=== PATIENT | male | born 1965 | race Caucasian/White ===

== ENCOUNTER 2019-04-14 00:55 | Day surgery (SDC) | payer MEDICAID, SELFPAY ==
[2019-04-12 15:14] VITALS: BMI 26.3
[2019-04-14] VITALS (8 sets, daily range): BP systolic 132–162; BP diastolic 78–101; PULSE 87–98; RESP 12–20; TEMP 36.4–37.1; O2SAT 95–100
--- NOTE | ~2019-04-14 | XR_ITS ---
EXAMINATION: XR surgery orthopedic DATE: 04/14/2019 13:47 INDICATION: Left hand second proximal phalanx fracture. TECHNIQUE: 3 intraoperative spot fluoroscopic views of left hand were obtained. I was not present. Fl uoroscopy exposure time was 72 seconds. COMPARISON: Left hand radiographs 04/12/2019 FINDINGS: There is a comminuted extra articular fracture of second proximal phalanx in near-anatomic alignment with fixation with 2 wires. 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 IMPRESSION: 1. Comminuted fractures of second proximal phalanx status post pinning. Reviewed, dictated and finalized at location A. L MOLDER
--- NOTE | 2019-04-14 07:25 | WPDHPUPDATE1 ---
History and Physical Update Update Date/Time: 04/14/19 07:25 History and Physical has been reviewed, including an updated exam of the patient. There are NO changes in the patient's condition. Risks, benefits, and alternatives have been discussed and questions answered. Patient agrees to proceed with procedure.
--- NOTE | 2019-04-14 11:41 | WPDANESEPPF ---
Anes - Initial Pre Proc Eval Procedure: Operation Date: 04/14/19 12:30 Proposed Procedures p Closed Reduction Proximal Phalanx Left Hand Index Finger, Possible Open Reduction - Hemanth Mace MD Date/Time: 04/14/19 11:41 Surgeon: Hemanth Mace MD Pre Op Diagnosis: Left Index Finger Proximal Phalanx Fx Patient Data Age: 54 Gender: M Height: 1.83 m Weight: 88 kg Allergies Allergy/AdvReac Type Severity Reaction Status Date / Time Penicillins Allergy Unknown Unknown Verified 04/12/19 15:29 Home Medications Medication Instructions Recorded Confirmed Type acetaminophen 650 mg PO Q6H PRN 04/12/19 04/12/19 History allopurinol 300 mg PO DAILY 04/12/19 04/12/19 History aspirin 81 mg PO DAILY 04/12/19 04/12/19 History bisacodyl 10 mg [place] DAILY PRN 04/12/19 04/12/19 History cyanocobalamin (vitamin B-12) 1,000 mcg PO DAILY 04/12/19 04/12/19 History [Vitamin B-12] ergocalciferol (vitamin D2) 50,000 unit PO WEEKLY 04/12/19 04/12/19 History [Vitamin D2] hydrocodone 5 mg-acetaminophen 325 1 tablet PO TID 04/12/19 04/12/19 History mg tablet ibuprofen 600 mg PO TID PRN 04/12/19 04/12/19 History omeprazole 40 mg PO DAILY 04/12/19 04/12/19 History Patient hx anesthesia problems: none Family hx anesthesia problems: none PMFSH Past Medical History Medical History (Updated 04/14/19 @ 11:41 by Raul Woodard MD) Anxiety Arthritis Dizziness Overweight Vision loss Surgical History Surgical History (Updated 04/12/19 @ 17:30 by Hemanth Mace MD) Encounter for orthopedic follow-up care Finger fracture, left Social History Social History Tobacco type: e-cigarettes Smokeless tobacco user: other Alcohol intake: current Substance use: unknown Gender identity (if verbalized by the patient): Male Spiritual care concerns: No Anes - Eval Final PreProcedure Day of Procedure 04/14/19 11:41 Patient weight: overweight Heart: regular rate and rhythm Lungs: clear to auscultation and normal air movement Airway: Mallampati scale class II Neurological: alert and oriented Last oral intake: >/= 8 hours ASA classification: III Emergent: no Anesthetic plan: proceed Anesthesia type and monitoring: general GIVS Informed Consent: The patient's anesthetic plan and its attendant risks and benefits were discussed with the patient/family/POA. Questions were solicited and answers provided to the satisfaction of the patient/family/POA.
[2019-04-14] MEDS: LACTATED RINGERS 1,000 ML 30 ML IV CONT ×2 (11:55→14:16)
[2019-04-14] MEDS: IBUPROFEN IV 800 MG/200 ML 800 MG/200 ML BAG 400 MG IVPB (12:04)
[2019-04-14] MEDS: CLINDAMYCIN 900 MG/NS 50 ML 900 MG/50 ML PIGGYBACK 50 MG IVPB (12:44)
--- NOTE | 2019-04-14 14:12 | PM.PROC ---
Procedure Note - Detailed Date of procedure: 04/14/19 Pre-op diagnosis: Left Index Finger Proximal Phalanx Fx Post-op diagnosis: same Procedure performed: Closed reduction percutaneous pin fixation left index finger proximal phalanx fracture Description of procedure: Indications: 54-year-old gentleman fell on his left hand and fractured index finger proximal phalanx. Radiographs show angulation, displacement and shortening. Patient with previous injury to the index finger proximal interphalangeal joint with fusion procedure done. Now secondary to fracture displacement there is deformity of the finger and unacceptable alignment. Presents for operative treatment. Patient identified in the preoperative holding. Informed consent given. Operative extremity marked. Patient received intravenous antibiotics. Patient brought to the operating room where underwent general anesthetic by anesthesia team. Positioned supine on operating room table. Time-out performed confirming the patient, site of the surgery and the plan. Left hand prepped draped usual sterile surgical fashion using a ChloraPrep skin solution. Closed reduction performed of the index finger proximal phalanx fracture. Image intensification confirmed alignment. Percutaneous pin fixation achieved with 0.062 in K-wire. First 1 placed from the radial side of the distal proximal phalanx and inserted proximally across the fracture into the ulnar side of the proximal fragment. Second pin placed from the radial side of the proximal fragment and advanced distally across the fracture and into the distal fragment. Image intensification confirm reduction of the fracture and placement of the fixation. Clinically rotation was verified with flexion of the finger and fingernail alignment. Pins were bent outside the skin and cut. Sterile dressing applied followed by splint. Patient awoke from anesthesia, extubated and taken to the recovery room in stable condition. Instrument count performed in the operating Room accurate at the end of the procedure. Implants: 0.062 in K-wire x2 Anesthesia: GLMA Surgeon: Hemanth Mace MD Stationary Equipment Mechanic: 1st photo studio assistant Estimated blood loss (mL): 3 Drains: No Packing: No Pathology: none sent Complications: None Condition: stable Disposition: PACU
[2019-04-14] MEDS: HYDROMORPHONE HCL 1 MG/ML INJ 0.25 MG IV PUSH ×4 (14:14→14:38)
[2019-04-14] MEDS: hydrALAZINE HCL 20 MG/ML VIAL 10 MG IV PUSH (14:38)
== END 2019-04-14 15:50 | disposition home or self-care (01) ==
PROVIDERS: Visit Provider Orthopaedic Surgery
PROC: (CPT 26727; principal; 2019-04-14 12:30)
DX: S62.611A Displaced fracture of proximal phalanx of left index finger, initial encounter for closed fracture (principal); W19.XXXA Unspecified fall, initial encounter; M19.90 Unspecified osteoarthritis, unspecified site; F41.9 Anxiety disorder, unspecified; Z79.82 Long term (current) use of aspirin; F17.290 Nicotine dependence, other tobacco product, uncomplicated
CPT/HCPCS: 26727; 76000; A9270; C1713; J0360; J1170; J1741; J2250; J3010; J7120

== ENCOUNTER 2020-07-24 15:52 | Emergency (ER) | payer OTHER, SELFPAY ==
--- NOTE | ~2020-07-24 | CT_ITS ---
EXAMINATION: CT cervical [facility] EXAM DATE: 07/24/2020 16:51 INDICATION: Neck and back pain, could not lay on back. TECHNIQUE: Spiral CT of the cervical spine was performed without contrast. Axial images were reviewe d. Coronal and sagittal reformatted images cervical spine were also reviewed. The dose-length produc t (DLP) for this examination was 353.29 mGy-cm. The exposure was tailored according to patient size (auto mA exposure control), and iterative reconstruction (ASIR) was used as additional dose reduction technique. There is no prior study for comparison. FINDINGS: There are large anteriorly based osteophytes at mid cervical levels. There is moderate to severe loss of the C6-7 disc height, mild to moderate disc disease at the 3 levels above. The vertebr al bodies are aligned in the AP dimension. The odontoid process is intact. The lateral masses of C1 line up with C2. There are no acute fractures identified. Level by level evaluation: C2-C3: Disc does not extend beyond the endplate margin. Uncovertebral joint arthropathy: None. Facet joint arthropathy: Mild. Neural foraminal stenosis: No stenosis. Central canal stenosis: No stenosis. C3-C4: Disc does not extend beyond the endplate margin. Uncovertebral joint arthropathy: None. Facet joint arthropathy: Mild. Neural foraminal stenosis: No stenosis. Central canal stenosis: No stenosis. C4-C5: There is a minimal diffuse disc bulge. Uncovertebral joint arthropathy: None. Facet joint arthropathy: Mild. Neural foraminal stenosis: No stenosis. Central canal stenosis: No stenosis. C5-C6: There is a mild diffuse disc bulge. Uncovertebral joint arthropathy: Mild to moderate left, mild right. Facet joint arthropathy: Severe right, mild to moderate left. Neural foraminal stenosis: Moderate right, mild left. Central canal stenosis: Mild. C6-C7: There is a mild to moderate diffuse disc bulge. Uncovertebral joint arthropathy: Severe bilateral. Facet joint arthropathy: Mild to moderate bilateral. Neural foraminal stenosis: Severe left, moderate to severe right. Central canal stenosis: Mild to moderate. C7-T1: There is a minimal diffuse disc bulge. Uncovertebral joint arthropathy: Mild bilateral. Facet joint arthropathy: None. No acute findings. Neural foraminal stenosis: No stenosis. Central canal stenosis: No stenosis. IMPRESSION: 1. Moderate to severe spondylosis at C6-7 with significant bilateral neural foraminal stenosis. 2. Large cervical endplate osteophytes. Reviewed, dictated and finalized at location A. IMPRESSION: 1. Moderate to severe spondylosis at C6-7 with significant bilateral neural fo raminal stenosis. 2. Large cervical endplate osteophytes.
[2020-07-24 16:17] VITALS: BP 147/100; PULSE 100; RESP 14; TEMP 36.7; O2SAT 100
[2020-07-24] MEDS: diazePAM (*CRX) 5 MG TABLET PO (16:53)
[2020-07-24] MEDS: HYDROcodone/acetaminophen (*CRX) 7.5-325 MG TABLET 1 TAB PO (16:53)
[2020-07-24] MEDS: KETOROLAC (*BKC) 60 MG/2 ML VIAL IM (16:54)
--- NOTE | 2020-07-24 18:10 | ED.BACK ---
HPI - Back Pain/Injury General Chief Complaint: Back Pain/Injury Stated Complaint: neck pain Time Seen by Provider: 07/24/20 16:25 Source: patient and RN notes reviewed Mode of arrival: ambulatory Limitations: no limitations History of Present Illness HPI Narrative: Patient is a 55-year-old male who presents to emergency department for evaluation of neck pain that began on Thursday noting aching pain to the left side of the neck patient notes spasming and tenderness into the trapezius musculature patient denies injury or trauma has tried [id number] medications with minimal improvement patient notes that the pain now patient notes pain on the right patient appears uncomfortable upon arrival denies radicular symptoms or paresthesias or similar occurrence in the past patient has not seen primary care for this Related Data Home Medications Medication Instructions Recorded Confirmed acetaminophen 650 mg PO Q6H PRN 04/12/19 04/12/19 allopurinol 300 mg PO DAILY 04/12/19 04/14/19 aspirin 81 mg PO DAILY 04/12/19 04/12/19 bisacodyl 10 mg [place] DAILY PRN 04/12/19 04/12/19 cyanocobalamin (vitamin B-12) 1,000 mcg PO DAILY 04/12/19 04/12/19 [Vitamin B-12] ergocalciferol (vitamin D2) 50,000 unit PO WEEKLY 04/12/19 04/12/19 [Vitamin D2] hydrocodone 5 mg-acetaminophen 325 1 tablet PO TID 04/12/19 04/14/19 mg tablet ibuprofen 600 mg PO TID PRN 04/12/19 04/12/19 omeprazole 40 mg PO DAILY 04/12/19 04/12/19 Allergies Allergy/AdvReac Type Severity Reaction Status Date / Time Penicillins Allergy Unknown Unknown Verified 04/12/19 15:29 Review of Systems Review of Systems: All systems reviewed & are unremarkable except as noted in HPI and below PMFSH Past Medical History Medical History (Updated 07/24/20 @ 18:16 by Jostin Mackey PA-C) Anxiety Arthritis Dizziness Overweight Vision loss Surgical History Surgical History Encounter for orthopedic follow-up care Finger fracture, left Family History Family History Other Heart disease Social History Social History Tobacco type: e-cigarettes/vaping Smokeless tobacco user: other Alcohol intake: current Substance use: unknown Gender identity (if verbalized by the patient): Male Spiritual care concerns: No Exam Narrative: Exam Narrative: GENERAL: Well-appearing, well-nourished, uncomfortable and in no acute distress. HEAD: Normocephalic, atraumatic. EYES: PERRLA and EOMI. ENT: Nares clear, no rhinorrhea or epistaxis. Mucous membranes moist. Oropharynx without tonsillar hypertrophy exudate or other lesions. NECK: Supple. No adenopathy or masses. CHEST: Clear to auscultation. No respiratory distress. No wheezes rales or rhonchi HEART: Regular rate and rhythm. No murmur heard. Normal peripheral pulses. ABDOMEN: Soft, nontender, nondistended EXTREMITIES: Normal range of motion. No edema. Spasming and tenderness of the cervical musculature no rash or other deformities noted tenderness is posterior neck only SKIN: Warm, dry, no rash. NEURO: No focal deficits. Alert and oriented x3. Cranial nerves II through XII grossly intact. Motor and sensory intact and symmetrical in the extremities PSYCH: Normal mood and affect. Course Course Emergency Course: Patient evaluated in the emergency department was treated with medications will be discharged home with medication and primary care referral felt appropriate for outpatient reevaluation had improvement with medications is afebrile nontoxic-appearing no distress Vital Signs Vital signs: Vital Signs Temperature 98.1 F 07/24/20 16:17 Pulse Rate 100 07/24/20 16:17 Respiratory Rate 14 07/24/20 16:17 Blood Pressure 147/100 H 07/24/20 16:17 Pulse Oximetry 100 07/24/20 16:17 Temperature 98.1 F 07/24/20 16:17 Pulse Rate 100
== END 2020-07-24 18:27 | disposition home or self-care (01) ==
PROVIDERS: Emergency Provider Emergency Medicine
DX: M54.2 Cervicalgia (principal); M47.812 Spondylosis without myelopathy or radiculopathy, cervical region; F41.9 Anxiety disorder, unspecified; M19.90 Unspecified osteoarthritis, unspecified site
CPT/HCPCS: 72125; 96372; 99284; A9270; J1885

== ENCOUNTER 2020-08-20 17:38 | Inpatient (IN) | payer OTHER, SELFPAY ==
--- NOTE | ~2020-08-20 | XR_ITS ---
XR chest 2V DATE: 08/20/2020 18:31 INDICATION: Shortness of breath, anterior right chest pain. Dizziness. Right hand numbness. Smoker. TECHNIQUE: AP and lateral views COMPARISON: 12/02/2018 AP chest FINDINGS: Normal heart size. No pulmonary infiltrate or consolidation, pleural effusion or pulmonary vascular congestion or pneumothorax. Chronic mild blunting right costophrenic angle. Old left healed rib fractures. Osteopenia. Surgical clips overlie the right upper quadrant of the abdomen. IMPRESSION: No active cardiopulmonary disease Reviewed, dictated and finalized at location A.
--- NOTE | ~2020-08-20 | XR_ITS ---
XR finger 2nd RT min 2V 08/22/2020 09:39 INDICATION: Right second finger pain PROCEDURE: 4 views right second finger COMPARISON: No prior studies for comparison. FINDINGS: Fracture, dislocation or subluxation is not identified. The soft tissues appear within norm al limits. No foreign bodies are identified. IMPRESSION: 1: NO ACUTE BONE OR JOINT ABNORMALITY IDENTIFIED. Reviewed, dictated and finalized at location A.
--- NOTE | ~2020-08-20 | US_ITS ---
US renal BI 08/21/2020 07:59 Procedure: Realtime transabdominal ultrasound of the kidneys and bladder. Indication: Acute renal insufficiency Comparison: No prior studies for comparison. Findings: Renal echotexture is normal bilaterally without hydronephrosis, contour deforming mass or r enal calculus. The right kidney measures 12.3 cm and left kidney measures 10.4 cm. Bladder within no rmal limits. There is fatty infiltration of the liver. Impression: 1: Unremarkable renal ultrasound. No stones, masses or hydronephrosis. Reviewed, dictated and finalized at location A. Impression: 1: Unremarkable renal ultrasound. No stones, masses or hydronephrosis.
[2020-08-20 17:51] VITALS: BP 102/82; PULSE 111; RESP 17; O2SAT 97
--- NOTE | 2020-08-20 18:00 | ED.GENADULT ---
HPI - General Adult General Chief complaint: Chest Pain Stated complaint: CP,DIZZINESS,TINGLING Time Seen by Provider: 08/20/20 17:52 Source: patient History of Present Illness HPI narrative: Patient is a 55 y/o male complaining of sharp chest pain starting about 10 hours ago while he was at work. He describes his pain as sharp and rates it as 9/10. There is no alleviating or exacerbating factor. There is no pain radiation. He also has SOB and tingling, cramping all over. 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 Related Data Home Medications Medication Instructions Recorded Confirmed acetaminophen 650 mg PO Q6H PRN 04/12/19 04/12/19 allopurinol 300 mg PO DAILY 04/12/19 04/14/19 aspirin 81 mg PO DAILY 04/12/19 04/12/19 bisacodyl 10 mg AL DAILY PRN 04/12/19 04/12/19 cyanocobalamin (vitamin B-12) 1,000 mcg PO DAILY 04/12/19 04/12/19 [Vitamin B-12] ergocalciferol (vitamin D2) 50,000 unit PO WEEKLY 04/12/19 04/12/19 [Vitamin D2] hydrocodone 5 mg-acetaminophen 325 1 tablet PO TID 04/12/19 04/14/19 mg tablet ibuprofen 600 mg PO TID PRN 04/12/19 04/12/19 omeprazole 40 mg PO DAILY 04/12/19 04/12/19 Allergies Allergy/AdvReac Type Severity Reaction Status Date / Time Penicillins Allergy Unknown Unknown Verified 08/20/20 17:56 Review of Systems Constitutional: Constitutional: Denies chills, Denies fever(s), Denies headache(s) and Denies weakness Eyes: Eyes: Denies blurry vision ENT: Denies headache(s) and Denies neck pain Cardiovascular: Cardiovascular: Reports chest pain and Reports dyspnea Respiratory: Respiratory: Denies cough and Reports dyspnea Gastrointestinal: Gastrointestinal: Denies abdominal pain, Denies diarrhea, Denies nausea and Denies vomiting Genitourinary: Genitourinary: Denies hematuria and Denies dysuria Musculoskeletal: Musculoskeletal: Denies back pain and Denies neck pain Neurologic: Denies headache(s), Reports tingling, Reports paresthesias and Denies weakness [facility] Past Medical History Medical History (Updated 08/20/20 @ 19:48 by Pascale Trimble MD) Anxiety Arthritis Dizziness Overweight Vision loss Surgical History Surgical History Encounter for orthopedic follow-up care Finger fracture, left Family History Family History Other Heart disease Social History Social History Tobacco type: e-cigarettes/vaping Smokeless tobacco user: other Alcohol intake: current Substance use: unknown Gender identity (if verbalized by the patient): Male Spiritual care concerns: No Exam Const: General: no acute distress and well developed Orientation/consciousness: oriented to person, oriented to place, oriented to time and patient oriented x3 HENMT: Head: normocephalic Ears: external ears normal General nose exam: Normal external nose present Eyes: General: appearance normal, both eyes and all related structures Conjunctivae: conjunctivae normal Neck: Neck: normal visual inspection and full ROM Chest: Chest palpation & inspection: normal inspection of the chest and no tenderness Resp: Effort & Inspection: normal respiratory effort Auscultation: clear to auscultation bilaterally Cardio: Rate: tachycardic Rhythm: regular rhythm GI: GI Palp: No abdominal tenderness and Yes Soft to palpation Skin: General skin exam: normal color and turgor normal Neuro: General: oriented to person, oriented to place, oriented to time and patient oriented x3 Cognition (Neuro): normal cognition Extrem: General: normal to inspection, full ROM and no pedal edema Psych: Appearance: grossly normal Mental Status: mental status grossly normal Affect: normal affect Course Consultations Consultation #1: Discussed with Dr. Callahan, who agrees to admit. Date: 08/20/20 Time: 19:43 Vital Signs Vital signs: Vital Signs P
--- NOTE | 2020-08-20 18:03 | ECG_ITS ---
Measurements Intervals [place] Rate: 112 P: 26 IL: 156 QRS: -42 QRSD: 101 T: 42 QT: 325 QTc: 444 Interpretive Statements SINUS TACHYCARDIA LEFT AXIS DEVIATION POOR R WAVE PROGRESSION, ANTERIOR LEADS BASELINE ARTIFACT- II, III, AVR, AVF, V1-V6 ABNORMAL ECG Electronically Signed On 08-20-2020 21:47:45 CDT by Eric Moffett D.O.
[2020-08-20] MEDS: SODIUM CHLORIDE 0.9% IV 1,000 ML 999 ML IV CONT ×2 (18:10→19:47)
[2020-08-20 18:20] LABS: Basophils Absolute Auto 0.1 K/mm3 (0.0-0.1); Basophils Percent Auto 0.4 % (0.2-1.2); Eosinophils Absolute Auto 0.1 K/mm3 (0-0.3); Eosinophils Percent Auto 0.7 % (0-4.4); Hematocrit 48.4 % (42.0-52.0); Hemoglobin 16.8 g/dL (14.0-18.0); Immature Granulocyte Absolute 0.16 K/mm3 (0.00-0.031); Lymphocytes Percent Auto 11.2 % (18.3-44.2); Mean Corpuscular HGB Conc 34.7 g/dl (32-36); Mean Corpuscular Hemoglobin 36.5 pg (26-34); Mean Corpuscular Volume 105.2 fl (80-100); Mean Platelet Volume 9.8 fl (7.4-10.4); Monocytes Absolute Auto 1.3 K/mm3 (0.1-0.6); Neutrophils Absolute Auto 12.7 K/mm3 (1.3-6.7); Neutrophils Percent Auto 78.7 % (45.5-73.1); Nucleated Red Blood Cells Perc 0.1 % (0.0-0.2); Platelet Count Result 332 k/mm3 (150-375); Red Cell Distribution Width 12.9 % (11.5-14.5); White Blood Count 16.1 K/mm3 (4.5-10.0)
[2020-08-20 18:32] LABS: Alanine Aminotransferase 64 U/L (4-50); Albumin Level 4.9 g/dL (3.5-5.1); Alkaline Phosphatase 157 U/L (38-126); Anion Gap 19 mmol/L (8-16); Aspartate Amino Transferase 109 U/L (17-59); Bilirubin,Total 1.6 mg/dL (0.2-1.3); Blood Urea Nitrogen 16 mg/dL (9-20); Calcium 10.7 mg/dL (8.4-10.2); Carbon Dioxide 21 mmol/L (22-30); Chloride 97 mmol/L (98-107); Creatine Kinase 324 U/L (55-170); Estimated CRCL calculation 26 ml/min; Estimated Glomerular Filt Rate 20; Glucose 105 mg/dL (75-110); Potassium 3.9 mmol/L (3.4-5.0); Sodium 137 mmol/L (137-145)
[2020-08-20 18:35] LABS: D Dimer 0.58 ug/mL (<0.48)
[2020-08-20 18:43] LABS: Troponin I 0.012 ng/mL (0.000-0.034)
[2020-08-20 18:45] VITALS: PULSE 105; RESP 27
[2020-08-20 18:46] VITALS: BP 102/73; PULSE 107; RESP 29; O2SAT 99
[2020-08-20 20:31] VITALS: BP 95/54; PULSE 108; RESP 18; TEMP 36.5; O2SAT 94; BMI 29.0
--- NOTE | 2020-08-20 21:04 | PM.IMHP ---
H&P: HPI History of Present Illness Date/Time: 08/20/20 21:04 Chief Complaint: Muscle cramps Narrative: This is a 55-year-old male with past medical history significant for 40 pack - year tobacco dependence, alcohol dependence, gout, gout arthritis. Patient states that he has cut back on cigarette consumption as well as alcohol his down to up 10 cigarettes a day from a pack daily and up to a 5th of liquor on the weekends from a handle. 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 He states that over the weekend he was helping a friend to move the stuffs around in his garage and the heat was intense and he was feeling short of breath and fatigued when lifting and shoveling had to stop several times. He states that he drinks several bottles of Gatorade daily and he keeps up with his fluids. He has had changes in the sputum quality his usual sputum is white and has turned greenish and has had some copious sputum production. He denies any fevers chills rigors no PND no orthopnea no leg swelling however he had chest pain localized to the ribcage of the right-sided and numbness and tingling of the right upper extremity which has resolved now. He denies any nausea vomiting or diarrhea no abdominal pain had decreased urine output and dark color urine. Preliminary workup was significant for creatinine of 3.1 patient last creatinine was back in 2019 and was normal he has some elevation of LFT's. CBC showed a hemoglobin of 16 and last previous available hemoglobin is of 10. A chest x-ray was clear. Review of Systems Review of Systems: Narrative: Muscle cramps, fatigue. Constitutional: Constitutional: Reports body ache(s), Reports fatigue, Denies fever(s), Denies malaise and Denies weakness Eyes: Eyes: Denies change in vision ENT: Denies nasal congestion, Denies nasal discharge and Denies nasal obstruction Cardiovascular: Cardiovascular: Denies chest pain at rest, Denies chest pain with activity, Denies irregular heart rhythm, Denies leg edema, Denies radiating jaw, neck or arm pain, Denies palpitations and Denies dyspnea on exertion Respiratory: Respiratory: Reports cough, Reports excessive phlegm production, Reports dyspnea, Reports dyspnea on exertion and Denies wheezing Gastrointestinal: Gastrointestinal: Denies abdominal pain, Denies nausea and Denies vomiting Genitourinary: Genitourinary: Denies dysuria Musculoskeletal: Musculoskeletal: Reports muscle cramps Integumentary/Breasts: Skin/Breast: Denies rash Neurologic: Denies focal weakness, Denies numbness, Denies Sensory deficit (Neuro) and Reports tingling (Right upper extremity) Psychiatric: Psychiatric: Reports no additional psychiatric complaints Endocrine: Endocrine: Denies polydipsia and Denies palpitations Hematologic/Lymphatic: Hematologic/Lymphatic: Reports no additional hematologic/lymphatic complaints Allergic/Immunologic: Allergic/Immunologic: Reports no additional allergic/immunologic complaints PMF Past Medical History Medical History (Updated 08/20/20 @ 21:58 by Nicky Callahan MD) Anxiety Arthritis Dizziness Overweight Vision loss Surgical History Surgical History Encounter for orthopedic follow-up care Finger fracture, left Family History Family History Other Heart disease Social History Social History Smoking packs per day: 10 Smoking cigarettes per day: 200.0 Smoking status: Current every day smoker Tobacco type: cigarettes Smokeless tobacco user: other Alcohol intake: current Drinks per week: 40 Substance use: former Gender identity (if verbalized by the patient): Male Spiritual care concerns: No Meds Home Medications and
--- NOTE | 2020-08-20 21:27 | ADMGEN ---
This patient, Erwin Mcgregor III, was admitted to [facility] Room 327-01. Patient/family oriented to hospital policies and general routines including ID bracelet, bed and alarms, visiting hours, pain management, procedures, bathroom and other care routines, personal items, smoking policy, room service/diet, and visiting hours. Information on how to activate the Rapid Response Team has been discussed. Patient/Family are encouraged to report perceived risks to care and to ask questions if they do not understand what they are told or what they should do.
[2020-08-20 21:58] LABS: Troponin I < 0.012 ng/mL (0.000-0.034)
[2020-08-20 22:00] VITALS: BP 98/72; PULSE 109; RESP 22; TEMP 36.4; O2SAT 98
[2020-08-20] MEDS: SODIUM CHLORIDE 0.9% IV 1,000 ML 125 ML IV CONT (23:14)
[2020-08-20 23:33] VITALS: O2SAT 98
[2020-08-21] VITALS (18 sets, daily range): BP systolic 103–124; BP diastolic 50–86; PULSE 82–105; RESP 18–20; TEMP 36.3–36.6; O2SAT 97–100
--- NOTE | 2020-08-21 | ECHO_ITS ---
Patient Info Name: Erwin Mcgregor Age: 55 years : 1965 Gender: Male Ht: 72 in Wt: 220 lbs BSA: 2.27 m2 HR: 83 bpm BP: 105 / 47 mmHg Heart Rhythm: Sinus Rhythm Technical Quality: Good Exam Date: 08/21/2020 10:29 AM Exam Location: [facility] Patient Status: Outpatient Admit Date: 08/20/2020 Staff Ordering Physician: Nicky Callahan MD Assembling Motor Builder: Jacob Garcia, SAMUEL, RT Attending Provider: Nicky Callahan MD Referring Physician: [place] GOFF; Exam Type: CA echo doppler color flow Study Info Indications R07.9 - Chest pain, unspecified Complete two-dimensional, color flow and Doppler transthoracic echocardiogram is performed. Summary 1. Complete two-dimensional, color flow and Doppler transthoracic echocardiogram is performed. 2. Left ventricular chamber size and systolic are normal with no regional wall motion abnormalities with an estimated ejection fraction of 65-70%. Borderline LVH. Grade 1 diastolic dysfunction. 3. The aortic root size at the sinus of Valsalva is borderline dilated, 4.0 cm.. 4. No significant valve disease. 5. Pulmonary pressure could not be estimated on this study. 6. Somewhat technically difficult study: patient could not cooperate fully. 7. Normal sinus rhythm. Left Ventricle Left ventricular chamber dimension is normal. Left ventricular systolic function is normal, estimated at Empty. There is mildly increased left ventricular wall thickness. Left ventricular septal wall motion is normal. The left ventricular diastolic function is grade I diastolic dysfunction. Left ventricular chamber size and systolic are normal with no regional wall motion abnormalities with an estimated ejection fraction of 65-70%. Borderline LVH. Grade 1 diastolic dysfunction. Right Ventricle Right ventricular chamber dimension is normal. Right ventricular systolic function is normal. Left Atria Left atrial chamber dimension is normal. Right Atria Right atrial chamber dimension is normal. Aortic Valve The aortic valve is trileaflet. There is no aortic valve sclerosis. There is no aortic valve stenosis. There is no aortic valve regurgitation. Pulmonic Valve The pulmonic valve is normal. There is no pulmonic valve stenosis. There is no pulmonic regurgitation. Mitral Valve The mitral valve has normal leaflets. There is no mitral valve stenosis. There is no mitral valve regurgitation. Tricuspid Valve The tricuspid valve leaflets are normal. There is no significant tricuspid valve stenosis. There is trace tricuspid valve regurgitation. No pulmonary hypertension, estimated pulmonary arterial systolic pressure is Empty. Pericardium/Pleural The pericardium appears normal. There is no pericardial effusion. Inferior Vena Cava Not well visualized inferior vena cava with >50% collapse upon inspiration consistent with Empty right atrial pressure, Empty. Aorta The aortic root size at the sinus of Valsalva is borderline dilated, 4.0 cm.. The prox ascending aorta size is normal. Left Ventricular Outflow Tract Name Value Normal LVOT 2D LVOT Diameter 2.1 cm LVOT Doppler
[2020-08-21 01:07] LABS: Troponin I < 0.012 ng/mL (0.000-0.034)
[2020-08-21] MEDS: ALBUTEROL SULFATE NEB 2.5 MG/0.5 ML INH 5 MG INHALATION ×4 (02:16→19:47)
[2020-08-21] MEDS: ENOXAPARIN 40 MG/0.4 ML SYRINGE SUB-Q (09:04)
[2020-08-21] MEDS: SODIUM CHLORIDE 0.9% IV 1,000 ML 125 ML IV CONT ×2 (09:53→18:26)
[2020-08-21 10:00] LABS: Creatinine Urine 145.9 mg/dL
[2020-08-21 10:06] LABS: Sodium Urine Random 72 meq/L
--- NOTE | 2020-08-21 12:55 | P.PNIM_ITS ---
Progress Note: A&P Assessment and Plan (1) Dehydration: Code(s): E86.0 - Dehydration Status: Acute Assessment and Plan: * Place in observation * IV fluids * Push oral fluids * Intake and output daily * Supportive care (2) BHASKAR (acute kidney injury): Code(s): N17.9 - Acute kidney failure, unspecified Status: Acute Assessment and Plan: * Will obtain fractional excretion of sodium * Sodium urine random is 72 and creatinine urine random 145.9 * Presumably to be pre renal azotemia * Patient is noted to be taking NSAID though * Patient declined Knowles catheter placement * Urine output is marginal * Strict I&Os (3) Chest pain: Qualifiers: Chest pain type: unspecified Qualified Code(s): R07.9 - Chest pain, unspecified Code(s): R07.9 - Chest pain, unspecified Status: Acute Assessment and Plan: * Located in the right ribcage * At time of my visit had resolved * Troponins <0.012 times three * Supportive care * Continue to monitor * Echocardiogram in a.m. (4) Chronic bronchitis with COPD (chronic obstructive pulmonary disease): Onset Date: ~08/20/20 Code(s): J44.9 - Chronic obstructive pulmonary disease, unspecified Status: Acute Assessment and Plan: * Patient with changes in sputum quality * Is started on levofloxacin * Albuterol inhaler every 6 hours (5) Tobacco dependence: Code(s): F17.200 - Nicotine dependence, unspecified, uncomplicated Status: Acute Assessment and Plan: * Nicotine patch as needed * smoking cessation (6) Alcohol dependence: Code(s): F10.20 - Alcohol dependence, uncomplicated Status: Acute Assessment and Plan: * CIWA * Watch for withdrawal symptoms (7) Gout: Code(s): M10.9 - Gout, unspecified Status: Acute Assessment and Plan: * Stable Subjective Date/time seen: 08/21/20 12:55 This is a 55-year-old male with past medical history significant for 40 pack - year tobacco dependence, alcohol dependence, gout, gout arthritis who presented to the ED with complaints of muscle cramps, chest pain, and spasm while at work. 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 He does drink lots of water and Gatorade while working, however, he did state that it has just been way too hot. He also stated that he has had diarrhea for the last three days and that he has noticed that he has not been urinating very much lately. He also stated that he is a heavy smoker and drinker, however has been cutting back. He also stated that he did fall and has been dizzy which has been increasing over the last couple of days. He has also been shaky and weak, with chills and fevers. He did say that he has been sweating more than normal and that he has been short of breath lately. He did deny chest pain, shortness of breath, nausea, vomiting, diarrhea, constipation, urinary dysfunction, chills, fevers, headaches, loss of conscientiousness, lightheadedness or dizziness. Review of Systems Review of Systems: All systems reviewed & are unremarkable except as noted in HPI and below Exam Const: General: comfortable, no acute distress, well developed, alert, awake and other (Well-appearing) Nutritional Appearance: average body habitus Orientation/consciousness: patient oriented x3 HENMT:
--- NOTE | 2020-08-21 12:55 | PM.IMPN ---
Progress Note: A&P Assessment and Plan (1) Dehydration: Code(s): E86.0 - Dehydration Status: Acute Assessment and Plan: Place in observation IV fluids Push oral fluids Intake and output daily Supportive care (2) BHASKAR (acute kidney injury): Code(s): N17.9 - Acute kidney failure, unspecified Status: Acute Assessment and Plan: Will obtain fractional excretion of sodium Sodium urine random is 72 and creatinine urine random 145.9 Presumably to be pre renal azotemia Patient is noted to be taking NSAID though Patient declined Knowles catheter placement Urine output is marginal Strict I&Os (3) Chest pain: Qualifiers: Chest pain type: unspecified Qualified Code(s): R07.9 - Chest pain, unspecified Code(s): R07.9 - Chest pain, unspecified Status: Acute Assessment and Plan: Located in the right ribcage At time of my visit had resolved Troponins <0.012 times three Supportive care Continue to monitor Echocardiogram in a.m. (4) Chronic bronchitis with COPD (chronic obstructive pulmonary disease): Onset Date: ~08/20/20 Code(s): J44.9 - Chronic obstructive pulmonary disease, unspecified Status: Acute Assessment and Plan: Patient with changes in sputum quality Is started on levofloxacin Albuterol inhaler every 6 hours (5) Tobacco dependence: Code(s): F17.200 - Nicotine dependence, unspecified, uncomplicated Status: Acute Assessment and Plan: Nicotine patch as needed smoking cessation (6) Alcohol dependence: Code(s): F10.20 - Alcohol dependence, uncomplicated Status: Acute Assessment and Plan: CIWA Watch for withdrawal symptoms (7) Gout: Code(s): M10.9 - Gout, unspecified Status: Acute Assessment and Plan: Stable Subjective Date/time seen: 08/21/20 12:55 This is a 55-year-old male with past medical history significant for 40 pack - year tobacco dependence, alcohol dependence, gout, gout arthritis who presented to the ED with complaints of muscle cramps, chest pain, and spasm while at work. 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 He does drink lots of water and Gatorade while working, however, he did state that it has just been way too hot. He also stated that he has had diarrhea for the last three days and that he has noticed that he has not been urinating very much lately. He also stated that he is a heavy smoker and drinker, however has been cutting back. He also stated that he did fall and has been dizzy which has been increasing over the last couple of days. He has also been shaky and weak, with chills and fevers. He did say that he has been sweating more than normal and that he has been short of breath lately. He did deny chest pain, shortness of breath, nausea, vomiting, diarrhea, constipation, urinary dysfunction, chills, fevers, headaches, loss of conscientiousness, lightheadedness or dizziness. Review of Systems Review of Systems: All systems reviewed & are unremarkable except as noted in HPI and below Exam Const: General: comfortable, no acute distress, well developed, alert, awake and other (Well-appearing) Nutritional Appearance: average body habitus Orientation/consciousness: patient oriented x3 HENMT: Head: normal to inspection, normocephalic and atraumatic Ears: hearing grossly normal bilaterally General nose exam: Normal external nose present Face and sinus: normal facial exam Mouth: Yes Normal oral and palatal mucosa present Eyes: General: appearance normal, both eyes and all related structures Sclera: sclerae normal Pupils: Equal, round and reactive pupils present EOM: EOMs intact bilaterally Neck: Neck: full ROM, no lymphadenopathy and no JVD Thyroid: thyroid normal Lymphatic: no lymphadenopathy noted Resp: Effort & Inspection: normal respi
--- NOTE | 2020-08-21 13:07 | PCNSR ---
On 08/21/20, the student,Madeline Cook, provided care and completed [facility] documentation on this patient. I have reviewed the student's documentation and agree with the findings.
[2020-08-22] VITALS (16 sets, daily range): BP systolic 106–126; BP diastolic 62–71; PULSE 69–96; RESP 12–18; TEMP 36.4–36.6; O2SAT 95–98
[2020-08-22] MEDS: ACETAMINOPHEN 325 MG TABLET 650 MG PO ×3 (01:25→20:16)
--- NOTE | 2020-08-22 01:31 | PC.NURSE ---
Patient woke up very agitated over the fact that his wrist and finger have been hurting all day and no one did anything to help him... patient made no complaints prior to this. Spoke to Dr. Diaz after reviewing Mr. Fraser visit and she ordered a CIWA scale per Vini's report as well as some PRN tylenol. I also offered the patient an extra pillow to prop up his arm and an ice pack. -AEW RN
[2020-08-22] MEDS: ALBUTEROL SULFATE NEB 2.5 MG/0.5 ML INH 5 MG INHALATION ×4 (02:20→20:39)
[2020-08-22 06:04] LABS: Basophils Percent Auto 0.3 % (0.2-1.2); Eosinophils Absolute Auto 0.1 K/mm3 (0-0.3); Eosinophils Percent Auto 1.8 % (0-4.4); Hematocrit 39.3 % (42.0-52.0); Hemoglobin 13.2 g/dL (14.0-18.0); Immature Granulocyte Absolute 0.04 K/mm3 (0.00-0.031); Immature Granulocyte Percent A 0.5 % (0-0.5); Lymphocytes Absolute Auto 0.91 K/mm3 (0.9-3.2); Lymphocytes Percent Auto 12.3 % (18.3-44.2); Mean Corpuscular HGB Conc 33.6 g/dl (32-36); Mean Corpuscular Hemoglobin 36.4 pg (26-34); Mean Corpuscular Volume 108.3 fl (80-100); Mean Platelet Volume 9.7 fl (7.4-10.4); Monocytes Absolute Auto 0.5 K/mm3 (0.1-0.6); Monocytes Percent Auto 6.8 % (2.6-8.5); Neutrophils Absolute Auto 5.8 K/mm3 (1.3-6.7); Neutrophils Percent Auto 78.3 % (45.5-73.1); Platelet Count Result 172 k/mm3 (150-375); Red Blood Count 3.63 M/mm3 (4.6-6.20); Red Cell Distribution Width 12.8 % (11.5-14.5); White Blood Count 7.4 K/mm3 (4.5-10.0)
[2020-08-22 06:24] LABS: Alanine Aminotransferase 38 U/L (4-50); Albumin Level 3.4 g/dL (3.5-5.1); Alkaline Phosphatase 112 U/L (38-126); Anion Gap 9 mmol/L (8-16); Aspartate Amino Transferase 75 U/L (17-59); Bilirubin,Total 0.5 mg/dL (0.2-1.3); Blood Urea Nitrogen 18 mg/dL (9-20); Calcium 7.9 mg/dL (8.4-10.2); Carbon Dioxide 20 mmol/L (22-30); Chloride 109 mmol/L (98-107); Estimated CRCL calculation 52 ml/min; Estimated Glomerular Filt Rate 45; Glucose 109 mg/dL (75-110); Magnesium 1.6 mg/dL (1.6-2.3); Potassium 3.7 mmol/L (3.4-5.0); Sodium 138 mmol/L (137-145)
[2020-08-22] MEDS: SODIUM CHLORIDE 0.9% IV 1,000 ML 125 ML IV CONT ×2 (16:31→16:32)
--- NOTE | 2020-08-22 16:50 | P.PNIM_ITS ---
Progress Note: A&P Assessment and Plan (1) Dehydration: Code(s): E86.0 - Dehydration Status: Acute Assessment and Plan: * Place in observation * IV fluids * Push oral fluids * Intake and output daily * Supportive care * Creatinine has decreased to 1.6 from 3.3 (2) BHASKAR (acute kidney injury): Code(s): N17.9 - Acute kidney failure, unspecified Status: Acute Assessment and Plan: * Will obtain fractional excretion of sodium * Sodium urine random is 72 and creatinine urine random 145.9 * Presumably to be pre renal azotemia * Patient is noted to be taking NSAID though * Patient declined Knowles catheter placement * Urine output is marginal * Strict I&Os (3) Chest pain: Qualifiers: Chest pain type: unspecified Qualified Code(s): R07.9 - Chest pain, unspecified Code(s): R07.9 - Chest pain, unspecified Status: Acute Assessment and Plan: * Located in the right ribcage * At time of my visit had resolved * Troponins <0.012 times three * Supportive care * Continue to monitor * Echocardiogram 65-70% grade 1 dysfunction (4) Chronic bronchitis with COPD (chronic obstructive pulmonary disease): Onset Date: ~08/20/20 Code(s): J44.9 - Chronic obstructive pulmonary disease, unspecified Status: Acute Assessment and Plan: * Patient with changes in sputum quality * Is started on levofloxacin * Albuterol inhaler every 6 hours (5) Tobacco dependence: Code(s): F17.200 - Nicotine dependence, unspecified, uncomplicated Status: Acute Assessment and Plan: * Nicotine patch as needed * smoking cessation (6) Alcohol dependence: Code(s): F10.20 - Alcohol dependence, uncomplicated Status: Acute Assessment and Plan: * CIWA * Watch for withdrawal symptoms * Librium 25mg Q12hr PRN for CIWA >10 (7) Gout: Code(s): M10.9 - Gout, unspecified Status: Acute Assessment and Plan: * Stable (8) Finger pain, right: Code(s): M79.644 - Pain in right finger(s) Status: Acute Assessment and Plan: * Red and swollen * No acute abnormalities shown on the xray * Splinted * Pain medications PRN Subjective Date/time seen: 08/22/20 13:24 This is a 55-year-old male with past medical history significant for 40 pack - year tobacco dependence, alcohol dependence, gout, gout arthritis who presented to the ED with complaints of muscle cramps, chest pain, and spasm while at work. Today he looks a lot better. Kidney function is trending down and is at 1.60 today. Patient stated that he was just starting to urinate more. He also stated that he was able to eat and has not had any diarrhea today. He did say that his index finger on the right hand hurts. Which it is red and inflamed. xray does not show any fracture or abnormality. Patient is unaware if he had fallen or hurt it an any way. Did put the finger in a split to try to take the pressure off. He did deny chest pain, shortness of breath, nausea, vomiting, diarrhea, constipation, urinary dysfunction, chills, fevers, headaches, loss of conscientiousness, lightheadedness or dizziness. He did say that he wanted to walk around and get out of bed. I told him that would be a good idea. Review of Systems Review of Systems: All systems reviewed & ar
--- NOTE | 2020-08-22 16:50 | PM.IMPN ---
Progress Note: A&P Assessment and Plan (1) Dehydration: Code(s): E86.0 - Dehydration Status: Acute Assessment and Plan: Place in observation IV fluids Push oral fluids Intake and output daily Supportive care Creatinine has decreased to 1.6 from 3.3 (2) BHASKAR (acute kidney injury): Code(s): N17.9 - Acute kidney failure, unspecified Status: Acute Assessment and Plan: Will obtain fractional excretion of sodium Sodium urine random is 72 and creatinine urine random 145.9 Presumably to be pre renal azotemia Patient is noted to be taking NSAID though Patient declined Knowles catheter placement Urine output is marginal Strict I&Os (3) Chest pain: Qualifiers: Chest pain type: unspecified Qualified Code(s): R07.9 - Chest pain, unspecified Code(s): R07.9 - Chest pain, unspecified Status: Acute Assessment and Plan: Located in the right ribcage At time of my visit had resolved Troponins <0.012 times three Supportive care Continue to monitor Echocardiogram 65-70% grade 1 dysfunction (4) Chronic bronchitis with COPD (chronic obstructive pulmonary disease): Onset Date: ~08/20/20 Code(s): J44.9 - Chronic obstructive pulmonary disease, unspecified Status: Acute Assessment and Plan: Patient with changes in sputum quality Is started on levofloxacin Albuterol inhaler every 6 hours (5) Tobacco dependence: Code(s): F17.200 - Nicotine dependence, unspecified, uncomplicated Status: Acute Assessment and Plan: Nicotine patch as needed smoking cessation (6) Alcohol dependence: Code(s): F10.20 - Alcohol dependence, uncomplicated Status: Acute Assessment and Plan: CIWA Watch for withdrawal symptoms Librium 25mg Q12hr PRN for CIWA >10 (7) Gout: Code(s): M10.9 - Gout, unspecified Status: Acute Assessment and Plan: Stable (8) Finger pain, right: Code(s): M79.644 - Pain in right finger(s) Status: Acute Assessment and Plan: Red and swollen No acute abnormalities shown on the xray Splinted Pain medications PRN Subjective Date/time seen: 08/22/20 13:24 This is a 55-year-old male with past medical history significant for 40 pack - year tobacco dependence, alcohol dependence, gout, gout arthritis who presented to the ED with complaints of muscle cramps, chest pain, and spasm while at work. Today he looks a lot better. Kidney function is trending down and is at 1.60 today. Patient stated that he was just starting to urinate more. He also stated that he was able to eat and has not had any diarrhea today. He did say that his index finger on the right hand hurts. Which it is red and inflamed. xray does not show any fracture or abnormality. Patient is unaware if he had fallen or hurt it an any way. Did put the finger in a split to try to take the pressure off. He did deny chest pain, shortness of breath, nausea, vomiting, diarrhea, constipation, urinary dysfunction, chills, fevers, headaches, loss of conscientiousness, lightheadedness or dizziness. He did say that he wanted to walk around and get out of bed. I told him that would be a good idea. Review of Systems Review of Systems: All systems reviewed & are unremarkable except as noted in HPI and below Exam Const: General: comfortable, no acute distress, well developed, alert, awake and other (Well-appearing) Nutritional Appearance: average body habitus Orientation/consciousness: patient oriented x3 HENMT: Head: normal to inspection, normocephalic and atraumatic Ears: hearing grossly normal bilaterally General nose exam: Normal external nose present Face and sinus: normal facial exam Mouth: Yes Normal oral and palatal mucosa present Eyes: General: appearance normal, both eyes and all related structures Sc
[2020-08-22] MEDS: chlordiazePOXIDE (*CRX) 25 MG CAPSULE PO (17:53)
[2020-08-22] MEDS: NICOTINE (*PBKC) 14 MG PATCH 1 PATCH TRANSDERM (23:06)
[2020-08-23] VITALS (7 sets, daily range): BP systolic 110–135; BP diastolic 54–73; PULSE 80–86; RESP 16–20; TEMP 36.3–36.9; O2SAT 97–100
[2020-08-23] MEDS: SODIUM CHLORIDE 0.9% IV 1,000 ML 125 ML IV CONT (00:18)
[2020-08-23 06:07] LABS: Hematocrit 39.7 % (42.0-52.0); Hemoglobin 13.2 g/dL (14.0-18.0); Mean Corpuscular HGB Conc 33.2 g/dl (32-36); Mean Corpuscular Hemoglobin 36.2 pg (26-34); Mean Corpuscular Volume 108.8 fl (80-100); Mean Platelet Volume 9.4 fl (7.4-10.4); Platelet Count Result 156 k/mm3 (150-375); Red Blood Count 3.65 M/mm3 (4.6-6.20); White Blood Count 7.4 K/mm3 (4.5-10.0)
[2020-08-23 06:24] LABS: Alanine Aminotransferase 38 U/L (4-50); Albumin Level 3.5 g/dL (3.5-5.1); Alkaline Phosphatase 104 U/L (38-126); Anion Gap 8 mmol/L (8-16); Aspartate Amino Transferase 68 U/L (17-59); Bilirubin,Total 0.4 mg/dL (0.2-1.3); Blood Urea Nitrogen 14 mg/dL (9-20); Calcium 8.1 mg/dL (8.4-10.2); Carbon Dioxide 21 mmol/L (22-30); Chloride 108 mmol/L (98-107); Estimated CRCL calculation 64 ml/min; Estimated Glomerular Filt Rate 58; Glucose 104 mg/dL (75-110); Potassium 4.2 mmol/L (3.4-5.0); Sodium 137 mmol/L (137-145)
[2020-08-23] MEDS: ALBUTEROL SULFATE NEB 2.5 MG/0.5 ML INH 5 MG INHALATION (08:48)
[2020-08-23] MEDS: ACETAMINOPHEN 325 MG TABLET 650 MG PO (09:03)
[2020-08-23] MEDS: chlordiazePOXIDE (*CRX) 25 MG CAPSULE PO (09:04)
[2020-08-23 10:37] LABS: Uric Acid 6.1 mg/dL (3.5-8.5)
[2020-08-23] MEDS: predniSONE 20 MG TABLET 40 MG PO (13:07)
[2020-08-23] MEDS: KETOROLAC 30 MG/ML VIAL (*BKC) IV PUSH (13:07)
--- NOTE | 2020-08-23 13:45 | PCRCNOTE ---
PT. REFUSED NEBULIZER TX; R.N. NOTIFIED JESSICA ABBOTT OF THE REFUSAL.
--- NOTE | 2020-08-23 17:45 | P.DS_ITS ---
DS: Admitting Diagnosis Admitting Diagnosis Admitting Diagnosis: Dehydration DS: Discharge Diagnosis Discharge Diagnosis (1) Dehydration: Code(s): E86.0 - Dehydration Status: Acute Assessment and Plan: * Place in observation * IV fluids * Push oral fluids * Intake and output daily * Supportive care * Creatinine has decreased to 1.3 from 3.3 (2) BHASAKR (acute kidney injury): Code(s): N17.9 - Acute kidney failure, unspecified Status: Acute Assessment and Plan: * Will obtain fractional excretion of sodium * Sodium urine random is 72 and creatinine urine random 145.9 * Presumably to be pre renal azotemia * Patient is noted to be taking NSAID though * Patient declined Knowles catheter placement * Urine output is marginal * Strict I&Os (3) Chest pain: Qualifiers: Chest pain type: unspecified Qualified Code(s): R07.9 - Chest pain, unspecified Code(s): R07.9 - Chest pain, unspecified Status: Acute Assessment and Plan: * Located in the right ribcage * At time of my visit had resolved * Troponins <0.012 times three * Supportive care * Continue to monitor * Echocardiogram 65-70% grade 1 dysfunction (4) Chronic bronchitis with COPD (chronic obstructive pulmonary disease): Onset Date: ~08/20/20 Code(s): J44.9 - Chronic obstructive pulmonary disease, unspecified Status: Acute Assessment and Plan: * Patient with changes in sputum quality * Is started on levofloxacin * Albuterol inhaler every 6 hours (5) Tobacco dependence: Code(s): F17.200 - Nicotine dependence, unspecified, uncomplicated Status: Acute Assessment and Plan: * Nicotine patch as needed * smoking cessation (6) Alcohol dependence: Code(s): F10.20 - Alcohol dependence, uncomplicated Status: Acute Assessment and Plan: * CIWA * Watch for withdrawal symptoms * Librium 25mg Q12hr PRN for CIWA >10 (7) Gout: Code(s): M10.9 - Gout, unspecified Status: Acute Assessment and Plan: * Stable * Uric acid 6.6 (8) Finger pain, right: Code(s): M79.644 - Pain in right finger(s) Status: Acute Assessment and Plan: * Red and swollen * No acute abnormalities shown on the xray * Splinted * Pain medications PRN DS: Summary Hospital Course Hospital Course: This is a 55-year-old male with past medical history significant for 40 pack - year tobacco dependence, alcohol dependence, gout, gout arthritis who presented to the ED with complaints of muscle cramps, chest pain, and spasm while at work. He has been rehydrated and creatinine has decreased to 1.3 from 3.6. Patient is urinating more and no edema is noted. Patient does feel better today. He is sitting on the side of the bed. He is ready to go home. Patient's white blood cell count and h/h is stable. He did deny chest pain, shortness of breath, nausea, vomiting, diarrhea, constipation, urinary dysfunction, chills, fevers, headaches, loss of conscientiousness, lightheadedness or dizziness. Time spent discussing smoking cessation with patient: more than 10 minutes Status at Discharge Functional status at discharge: independent ambulation Overall status at discharge: patient is back to baseline Time Spent with Patient Time attestation: * Total time spent providing a
--- NOTE | 2020-08-23 17:45 | PM.DS ---
DS: Admitting Diagnosis Admitting Diagnosis Admitting Diagnosis: Dehydration DS: Discharge Diagnosis Discharge Diagnosis (1) Dehydration: Code(s): E86.0 - Dehydration Status: Acute Assessment and Plan: Place in observation IV fluids Push oral fluids Intake and output daily Supportive care Creatinine has decreased to 1.3 from 3.3 (2) BHASKAR (acute kidney injury): Code(s): N17.9 - Acute kidney failure, unspecified Status: Acute Assessment and Plan: Will obtain fractional excretion of sodium Sodium urine random is 72 and creatinine urine random 145.9 Presumably to be pre renal azotemia Patient is noted to be taking NSAID though Patient declined Knowles catheter placement Urine output is marginal Strict I&Os (3) Chest pain: Qualifiers: Chest pain type: unspecified Qualified Code(s): R07.9 - Chest pain, unspecified Code(s): R07.9 - Chest pain, unspecified Status: Acute Assessment and Plan: Located in the right ribcage At time of my visit had resolved Troponins <0.012 times three Supportive care Continue to monitor Echocardiogram 65-70% grade 1 dysfunction (4) Chronic bronchitis with COPD (chronic obstructive pulmonary disease): Onset Date: ~08/20/20 Code(s): J44.9 - Chronic obstructive pulmonary disease, unspecified Status: Acute Assessment and Plan: Patient with changes in sputum quality Is started on levofloxacin Albuterol inhaler every 6 hours (5) Tobacco dependence: Code(s): F17.200 - Nicotine dependence, unspecified, uncomplicated Status: Acute Assessment and Plan: Nicotine patch as needed smoking cessation (6) Alcohol dependence: Code(s): F10.20 - Alcohol dependence, uncomplicated Status: Acute Assessment and Plan: CIWA Watch for withdrawal symptoms Librium 25mg Q12hr PRN for CIWA >10 (7) Gout: Code(s): M10.9 - Gout, unspecified Status: Acute Assessment and Plan: Stable Uric acid 6.6 (8) Finger pain, right: Code(s): M79.644 - Pain in right finger(s) Status: Acute Assessment and Plan: Red and swollen No acute abnormalities shown on the xray Splinted Pain medications PRN DS: Summary Hospital Course Hospital Course: This is a 55-year-old male with past medical history significant for 40 pack - year tobacco dependence, alcohol dependence, gout, gout arthritis who presented to the ED with complaints of muscle cramps, chest pain, and spasm while at work. He has been rehydrated and creatinine has decreased to 1.3 from 3.6. Patient is urinating more and no edema is noted. Patient does feel better today. He is sitting on the side of the bed. He is ready to go home. Patient's white blood cell count and h/h is stable. He did deny chest pain, shortness of breath, nausea, vomiting, diarrhea, constipation, urinary dysfunction, chills, fevers, headaches, loss of conscientiousness, lightheadedness or dizziness. Time spent discussing smoking cessation with patient: more than 10 minutes Status at Discharge Functional status at discharge: independent ambulation Overall status at discharge: patient is back to baseline Time Spent with Patient Time attestation: Total time spent providing and/or coordinating discharge services: Documentation, education, result review, order management, cardiac review, electrolyte management, bedside exam Time spent: Greater than 30 minutes Exam Const: General: comfortable, no acute distress, well developed, alert, awake and other (Well-appearing) Nutritional Appearance: average body habitus Orientation/consciousness: patient oriented x3 HENMT: Head: normal to inspection, normocephalic and atraumatic Ears: hearing grossly normal bilaterally General nose exam: Normal external nose present Face and sinus: normal
== END 2020-08-23 18:35 | disposition home or self-care (01) | DRG 422 ==
LOC: ANHED 19:48 → ANH3MEDSUR 20:27
PROVIDERS: Admitting Provider Internal Medicine; Emergency Provider Emergency Medicine; Visit Provider Nurse Practitioner
DX: E86.0 Dehydration (principal); N17.9 Acute kidney failure, unspecified; R07.9 Chest pain, unspecified; J44.9 Chronic obstructive pulmonary disease, unspecified; F17.210 Nicotine dependence, cigarettes, uncomplicated; M10.9 Gout, unspecified; F10.20 Alcohol dependence, uncomplicated; M79.644 Pain in right finger(s)
CPT/HCPCS: 36415; 71046; 73140; 76775; 80053; 82550; 82570; 83735; 84300; 84484; 84550; 85025; 85027; 85380; 93005; 93306; 94640; 96361; 96365; 96372; 99285; A9270; G0378; G0379; J1650; J1885; J1956; J7030; J7512

== ENCOUNTER 2020-11-28 19:00 | Emergency (ER) | payer MEDICAID, SELFPAY ==
[2020-11-28 19:05] VITALS: BP 151/83; PULSE 109; RESP 18; TEMP 36.2; O2SAT 100
[2020-11-28 19:27] LABS: Uric Acid 9.6 mg/dL (3.5-8.5)
[2020-11-28 22:37] VITALS: BP 123/82; PULSE 88; RESP 15; O2SAT 97
[2020-11-28] MEDS: COLCHICINE 0.6 MG TABLET PO (22:58)
[2020-11-28] MEDS: predniSONE 20 MG TABLET 60 MG PO (22:58)
--- NOTE | 2020-11-28 23:09 | ED.GENADULT ---
HPI - General Adult General Chief complaint: Extremity Problem,Nontraumatic Stated complaint: gout/rash to butt Time Seen by Provider: 11/28/20 22:30 Source: patient Mode of arrival: ambulatory Limitations: no limitations History of Present Illness HPI narrative: Patient is 55 years old white male presents with severe pain, redness and swelling of the metatarsophalangeal joint of the right first toe, also left ankle and left ring finger. History of gout, currently is not on any medication. Patient usually gets better on prednisone and colchicine. Patient also complaining of severe itching rash right buttock started 2 days ago. The joints pain started 2 weeks ago. Patient denies any fever, chills, nausea, vomiting. Patient is not vaccinated for COVID-19. Related Data Allergies Allergy/AdvReac Type Severity Reaction Status Date / Time Penicillins Allergy Unknown Unknown Verified 11/28/20 22:39 Review of Systems Review of Systems: CONSTITUTIONAL: Denies fever, chills, or sweats. EYES: Denies visual changes, redness, or discharge. ENT: Denies rhinorrhea, congestion, sore throat, or otalgia. CARDIOVASCULAR: Denies chest pain, palpitations, or edema. RESPIRATORY: Denies cough or dyspnea. GASTROINTESTINAL: Denies abdominal pain, nausea, vomiting, or diarrhea. GENITOURINARY: Denies dysuria or hematuria. SKIN: Denies rash or itching. MUSCULOSKELETAL: Denies back pain, joint pain, or myalgia. NEUROLOGIC: Denies headache, numbness, or weakness. PSYCHIATRIC: Denies anxiety or depression. [facility] Past Medical History Medical History Anxiety Arthritis Dizziness Overweight Vision loss Surgical History Surgical History Encounter for orthopedic follow-up care Finger fracture, left Family History Family History Other Heart disease Social History Social History Smoking packs per day: 10 Smoking cigarettes per day: 200.0 Smoking status: Current every day smoker Tobacco type: cigarettes Smokeless tobacco user: other Alcohol intake: current Drinks per week: 40 Alcohol use details: occasionally Substance use: former Gender identity (if verbalized by the patient): Male Spiritual care concerns: No Exam Narrative: General appearance: Well-developed, well-nourished Skin: Normal color Head: Normocephalic, nontraumatic Eyes: Clear conjunctiva ENT: Oropharynx normal, ears normal, nose normal Neck: Supple, nontender Chest and respiratory: Airway patent, no respiratory distress, no accessory muscle use Heart: Regular rate/rhythm Abdomen: Soft, nontender, no organomegaly, quiet bowel sounds Vascular: Normal peripheral pulses, normal capillary refill. Musculoskeletal: Right foot showed swelling, redness, severe tenderness of the right first metatarsophalangeal joint, left lateral malleolus redness and swelling, left ring finger showed swelling and diffuse tenderness of the proximal interphalangeal joint Neurologic: Alert and oriented ?3, [employer] is normal as tested, no gross motor deficit Course Course Emergency Course: Stable Vital Signs Vital signs: Vital Signs Temperature 36.2 C L 11/28/20 19:05 Pulse Rate 109 H 11/28/20 19:05 Respiratory Rate 18 11/28/20 19:05 Blood Pressure 151/83 H 11/28/20 19:05 Pulse Oximetry 100 11/28/20 19:05 Temperature 36.2 C L 11/28/20 19:05 Pulse Rate 88 11/28/20 22:37 Respiratory Rate 15 11/28/20 22:37 Blood Pressure 123/82 11/28/20 22:37 Pulse Oximetry 97 11/08
[2020-11-28] MEDS: COLCHICINE 0.6 MG TABLET (23:18)
== END 2020-11-28 23:22 | disposition home or self-care (01) ==
PROVIDERS: Emergency Provider Emergency Medicine
DX: M10.9 Gout, unspecified (principal); L30.9 Dermatitis, unspecified; M19.90 Unspecified osteoarthritis, unspecified site; E66.3 Overweight; Z68.25 Body mass index [BMI] 25.0-25.9, adult; F17.210 Nicotine dependence, cigarettes, uncomplicated
CPT/HCPCS: 36415; 84550; 99283; A9270; J7512

== ENCOUNTER 2021-10-07 18:33 | Emergency (ER) | payer BC, SELFPAY ==
[2021-10-07 18:37] VITALS: BP 128/86; PULSE 114; RESP 16; TEMP 36.7; O2SAT 99
== END 2021-10-07 20:00 | disposition left against medical advice (07) ==
LOC: ANHED 19:15
DX: R07.81 Pleurodynia (principal)
CPT/HCPCS: 99199

== ENCOUNTER 2021-12-05 17:34 | Emergency (ER) | payer BC, SELFPAY ==
--- NOTE | ~2021-12-05 | XR_ITS ---
EXAMINATION: XR shoulder RT min 2V DATE: 12/05/2021 17:59 INDICATION: Right shoulder pain and decreased range of motion TECHNIQUE: AP internally and externally rotated, AP oblique externally rotated and transscapular Y vi ews of the right shoulder were obtained. COMPARISON: None FINDINGS: Normal alignment. No fracture. Glenohumeral joint is normal. Minimal right acromioclavicular osteoar thritis. Soft tissues are unremarkable. Visualized portions of the lungs are clear. IMPRESSION: Minimal right acromioclavicular osteoarthritis. Reviewed, dictated and finalized at location A.
--- NOTE | ~2021-12-05 | CT_ITS ---
EXAMINATION: CT cervical spine wo con DATE: 12/05/2021 18:03 INDICATION: Severe neck pain TECHNIQUE: Computed tomography (CT) of the cervical spine was performed without intravenous contrast. Automated exposure control and iterative reconstruction technique were employed. The dose-length pro duct was 474.97 mGy-cm. COMPARISON: 07/24/2020 FINDINGS: Mild osteoarthritis at the atlantoaxial articulation. 1 mm anterolisthesis C5 on C6 and 1 mm retrolis thesis C6 on C7. Vertebral body heights are normal. No fracture. No significant change in moderate to severe disc height loss at C6-C7. Mild to moderate disc height loss at C5-C6 and mild disc height lo ss at C4-C5. Anterior osteophytes most prominent at C3-C4 and C4-C5 and to lesser degree at C5-C6 and C6-C7. Cervical soft tissues are unremarkable. Visualized apices of lungs are clear. The following d isc levels are specifically discussed: C2-C3: The disc does not extend beyond the endplate margin. There is no uncovertebral joint osteoarth ritis. There is mild bilateral facet joint osteoarthritis. There is no neural foraminal stenosis. The re is no central canal stenosis. C3-C4: The disc does not extend beyond the endplate margin. There is no uncovertebral joint osteoarth ritis. There is minimal bilateral facet joint osteoarthritis. There is no neural foraminal stenosis. There is no central canal stenosis. C4-C5: Disc is mildly bulging. There is minimal bilateral uncovertebral joint osteoarthritis. There i s minimal bilateral facet joint osteoarthritis. There is no neural foraminal stenosis. There is no ce ntral canal stenosis. C5-C6: Disc is bulging. There is mild bilateral uncovertebral joint osteoarthritis. There is mild lef t and severe right facet joint osteoarthritis. There is mild left and moderate right neural foraminal stenosis. There is mild central canal stenosis. C6-C7: Posterior disc osteophyte complex. There is severe bilateral uncovertebral joint osteoarthriti s. There is old right and mild to moderate left facet joint osteoarthritis. There is moderate to lobo re right and severe left neural foraminal stenosis. There is mild to moderate central canal stenosis. C7-T1: Disc is minimally bulging. There is no uncovertebral joint osteoarthritis. There is mild right and moderate to severe left facet joint osteoarthritis. There is no neural foraminal stenosis. There is no central canal stenosis. IMPRESSION: 1. No significant change in cervical spondylosis, moderate to severe at C6-C7 and otherwise mild. No acute osseous abnormality. Reviewed, dictated and finalized at location A. IMPRESSION: 1. No significant change in cervical spondylosis, moderate to severe at C6-C7 a nd otherwise mild. No acute osseous abnormality.
[2021-12-05 17:37] VITALS: BP 116/74; PULSE 106; RESP 16; TEMP 36.2; O2SAT 99
--- NOTE | 2021-12-05 17:49 | ED.NECK ---
HPI - Neck Pain/Injury General Chief Complaint: Neck Pain/Injury Stated Complaint: NECK PAIN Time Seen by Provider: 12/05/21 17:42 History of Present Illness HPI Narrative: Patient is a 56-year-old male here for evaluation of atraumatic neck pain over the past month and a half. Patient states that the pain came on gradually, and is worse with turning his head, is present in the right lateral aspect of his neck and will occasionally moves down into his right shoulder with certain movements. Patient states that turning his head no and lateral movement of his head exacerbate the pain in addition to abduction of his right shoulder. He has been attempting ibuprofen and Tylenol without significant relief. Denies known injury or recent increased exertion. Denies exertional component of pain, associated diaphoresis, nausea, vomiting, fevers, chills. No weakness in upper or lower extremities, weight loss, GARIBAY, visual symptoms. Related Data Allergies Allergy/AdvReac Type Severity Reaction Status Date / Time Penicillins Allergy Unknown Unknown Verified 12/05/21 18:09 Review of Systems Review of Systems: Gen: Denies fevers or chills Eyes: Denies eye pain or visual change ENT: Denies congestion Respiratory: Denies shortness of breath or cough CV: Denies chest pain or palpitations GI: Denies abdominal pain nausea, emesis or diarrhea denies burning, urgency, frequency or hematuria Musculoskeletal: Reports right-sided neck pain and shoulder pain. Neuro: Denies numbness, tingling, weakness or focal weakness Skin: Denies rash Except as documented, all other systems reviewed and negative [facility] Past Medical History Medical History (Updated 12/06/21 @ 00:00 by Allen Romero) Anxiety Arthritis Dizziness Overweight Vision loss Surgical History Surgical History Encounter for orthopedic follow-up care Finger fracture, left Family History Family History Other Heart disease Social History Social History Smoking packs per day: 10 Smoking cigarettes per day: 200.0 Smoking status: Current every day smoker Tobacco type: cigarettes Smokeless tobacco user: other Alcohol intake: current Drinks per week: 40 Alcohol use details: occasionally Substance use: former Gender identity (if verbalized by the patient): Male Spiritual care concerns: No Exam Narrative: APPEARANCE: Well appearing, no pain in distress, well-nourished. Head: Normocephalic and atraumatic. EYES: PERRLA/EOMI, conjunctivae clear NOSE: No nasal drainage EARS: External ear normal in appearance THROAT: Oropharynx is clear. Mucous membranes are moist. NECK: Supple. No adenopathy, no masses. RESPIRATORY: Airway patent, respirations nonlabored. Clear to auscultation bilaterally, no rales, rhonchi, wheezing. CARDIOVASCULAR: Regular rate and rhythm without murmurs, rubs, or gallops. ABDOMINAL: Normoactive bowel sounds. Soft, nontender, nondistended. No rebound tenderness or guarding. MUSCULOSKELETAL: Patient is able to flex his neck, reports pain with extension of neck but is able. Pain with lateral rotation of head to the right in addition to right lateral flexion. Spurling's test positive. Patient able to externally rotate arms. Pain with abduction of right shoulder at 90 degrees. 5/5 strength in bilateral upper and lower extremities. No midline tenderness to palpation of c spine. No bony tenderness to palpation of right shoulder. Tender to palpation along right trapezius muscle. NEURO: Normal speech. No focal neurologic deficits. SKIN: Skin is warm and dry. No rashes. PSYCHIATRIC: Normal affect/mood. Course Vital Signs Vital signs: Vital Signs Temperature 97.1 F L 12/05/21 17:37 Pulse Rate 106 H 12/05/21 17:37 Respiratory Rate 16 12/05/21 17:37 Blood Pressure 116/74
[2021-12-05] MEDS: LIDOCAINE 5% PATCH 1 PATCH TRANSDERM (18:07)
[2021-12-05] MEDS: CYCLOBENZAPRINE HCL 10 MG TABLET PO (18:07)
[2021-12-05 18:58] VITALS: BP 124/71; PULSE 89; RESP 16; O2SAT 100
== END 2021-12-05 19:09 | disposition home or self-care (01) ==
LOC: ANHED 19:04
PROVIDERS: Emergency Provider Emergency Medicine
DX: M19.011 Primary osteoarthritis, right shoulder (principal); M47.812 Spondylosis without myelopathy or radiculopathy, cervical region; E66.3 Overweight; Z68.27 Body mass index [BMI] 27.0-27.9, adult; F17.210 Nicotine dependence, cigarettes, uncomplicated
CPT/HCPCS: 72125; 73030; 99284; A9270

== ENCOUNTER 2022-05-26 18:07 | Emergency (ER) | payer BC, SELFPAY ==
[2022-05-26 18:13] VITALS: BP 165/101; PULSE 82; RESP 18; TEMP 36.5; O2SAT 100
--- NOTE | 2022-05-26 19:51 | ED.GENADULT ---
HPI - General Adult General Chief complaint: Neck Pain/Injury Stated complaint: neck pain Time Seen by Provider: 05/26/22 18:58 History of Present Illness HPI narrative: This is a 57-year-old male with a history of chronic neck and shoulder pain presenting with increased pain. Patient has been having pain for 6 months. It is a sharp shooting pain that starts in the para-thoracic muscles around T1 through T3 and shoots into the shoulder and down his hand. It is 10/10 intensity and constant. Patient has never had this pain before 6 months ago. It's worse with changing in position. Patient has tried Motrin Tylenol Robaxin lidocaine patches and gabapentin for relief. He said he had the best relief from gabapentin. The patient was being [facility] however he does not qualify for [facility] due to some issue with his service. He has been told to get a private physician and has been attempting to do that. He is unemployed. He is not on disability. He is accompanied by his girlfriend who speaks on his behalf. Related Data Allergies Allergy/AdvReac Type Severity Reaction Status Date / Time Penicillins Allergy Unknown Unknown Verified 05/26/22 18:38 [facility] Past Medical History Medical History (Updated 05/26/22 @ 20:03 by Shreyas Gillespie MD) Anxiety Arthritis Cervical spondylosis Dizziness Overweight Vision loss Surgical History Surgical History Encounter for orthopedic follow-up care Finger fracture, left Family History Family History Other Heart disease Social History Social History Smoking packs per day: 10 Smoking cigarettes per day: 200.0 Smoking status: Current every day smoker Tobacco type: cigarettes Smokeless tobacco user: other Alcohol intake: current Drinks per week: 40 Alcohol use details: occasionally Substance use: former Living arrangements: other Occupation/Education: unemployed Gender identity (if verbalized by the patient): Male Spiritual care concerns: No Exam Narrative: APPEARANCE: Patient is sitting upright with his head tilted to the left, he yells out intermittently and pain Head: atraumatic. EYES: EOMI, NOSE: Atraumatic NECK: Tenderness palpation over the right paracervical muscles. RESPIRATORY: No increased rate of breathing CARDIOVASCULAR: RRR, ABDOMINAL: Non-distended MUSCULOSKELETAl: tenderness to palpation over the right trapezius muscles around the upper thoracic region. palpation of the muscles in his trapezius cause shooting pains down his arms to his fingertips. The pain is not in a dermatomal distribution. NEURO: Alert. Focal exam of the right upper extremity reveals no loss of sensation, stress test technician strength, Radian ulnar median nerve distributions have full strength. Cap refills less than 2 seconds and radial ulnar pulses are +2. SKIN:: Warm, dry. Normal color PSYCHIATRIC: Normal affect Course Vital Signs Vital signs: Vital Signs Temperature 97.7 F 05/26/22 18:13 Pulse Rate 82 05/26/22 18:13 Respiratory Rate 18 05/26/22 18:13 Blood Pressure 165/101 H 05/26/22 18:13 Pulse Oximetry 100 05/26/22 18:13 Temperature 97.7 F 05/26/22 18:13 Pulse Rate 82 05/26/22 18:13 Respiratory Rate 18 05/26/22 18:13 Blood Pressure 165/101 H 05/26/22 18:13 Pulse Oximetry 100 05/26/22 18:13 Medical Decision Making MDM Narrative Medical decision making narrative: -Presentation: 57-year-old male presenting with chronic neck and shoulder pain. He is attempting to obtain a primary care physician. His appointment on the . The patient will be treated symptomatically and given medication to see him through to his apointment on 06/20. -DDX includes but is not limited to: Arthritis, regional pain syndrome, fibromyalgia, cervical radiculopathy -Co-morb
[2022-05-26] MEDS: HYDROcodone/acetaminophen (*CRX) 5-325 MG TABLET 2 TAB PO (20:15)
== END 2022-05-26 20:20 | disposition home or self-care (01) ==
PROVIDERS: Emergency Provider Emergency Medicine
DX: S16.1XXA Strain of muscle, fascia and tendon at neck level, initial encounter (principal); M25.511 Pain in right shoulder; M54.2 Cervicalgia; G89.29 Other chronic pain; M19.90 Unspecified osteoarthritis, unspecified site; M47.812 Spondylosis without myelopathy or radiculopathy, cervical region; E66.3 Overweight; Z68.28 Body mass index [BMI] 28.0-28.9, adult; F17.210 Nicotine dependence, cigarettes, uncomplicated; X58.XXXA Exposure to other specified factors, initial encounter
CPT/HCPCS: 99283; A9270

== ENCOUNTER 2023-07-23 17:47 | Emergency (ER) | payer BC, SELFPAY ==
--- NOTE | ~2023-07-23 | XR_ITS ---
EXAMINATION: XR foot LT min 3V DATE: 07/23/2023 18:33 INDICATION: Left foot pain and swelling. TECHNIQUE: 3 views of left foot were obtained. COMPARISON: None. FINDINGS: There is a fracture of medial aspect of head of first proximal phalanx with rotation and 2 mm dorsal medial displacement of the distal fracture fragment. Osteoarthritis of some of the interpha langeal joints. IMPRESSION: 1. Intra-articular fracture of medial aspect of head of first proximal phalanx. Reviewed, dictated and finalized at location E.
--- NOTE | ~2023-07-23 | XR_ITS ---
EXAMINATION: XR ankle LT min 3V DATE: 07/23/2023 18:18 INDICATION: Left ankle pain and swelling. Fall. TECHNIQUE: 3 views of left ankle were obtained. COMPARISON: None. FINDINGS: Bone alignment is normal. No fracture. There is mild osteoarthritis of talonavicular joint. There is ankle soft tissue swelling. IMPRESSION: 1. No fracture. Reviewed, dictated and finalized at location E. IMPRESSION: 1. No fracture.
--- NOTE | 2023-07-23 18:22 | ED.LOWEXIN ---
HPI - Extremity Injury (Lower) General Chief Complaint: Extremity Injury, Lower Stated Complaint: L ankle Time Seen by Provider: 07/23/23 17:52 Source: patient Mode of arrival: ambulatory Limitations: no limitations History of Present Illness HPI Narrative: Patient is a 58-year-old male who presents the ED with report of left ankle pain and swelling. Patient reports he tripped and rolled his left ankle walking down the stairs on Thursday. He has since developed pain and swelling throughout his left lateral ankle foot. Is able to ambulate, but has pain with this. States symptoms have continued to worsen which prompted his presentation today. Has been taking Tylenol and ibuprofen without much relief. Has not taken anything for pain today. Denies numbness, knee pain. Related Data Allergies Allergy/AdvReac Type Severity Reaction Status Date / Time Penicillins Allergy Unknown Unknown Verified 07/23/23 18:25 Review of Systems Review of Systems: CONSTITUTIONAL: Denies fever, chills, or sweats. MUSCULOSKELETAL: See HPI. NEUROLOGIC: Denies headache, dizziness, numbness, or weakness. All systems reviewed & are unremarkable except as noted in HPI and below PMFSH Past Medical History Medical History (Updated 07/23/23 @ 18:55 by Marleny Brooke PA-C) Ankle sprain Anxiety Arthritis Cervical spondylosis Dizziness Overweight Toe fracture Vision loss Surgical History Surgical History Encounter for orthopedic follow-up care Finger fracture, left Family History Family History Other Heart disease Social History Social History Smoking packs per day: 10 Smoking cigarettes per day: 200.0 Smoking status: Current every day smoker Tobacco type: cigarettes Smokeless tobacco user: other Alcohol intake: current Drinks per week: 40 Alcohol use details: occasionally Substance use: former Living arrangements: other Occupation/Education: unemployed Gender identity (if verbalized by the patient): Male Spiritual care concerns: No Exam Narrative: GENERAL: Well appearing, well-nourished, non-toxic, in no acute distress. HEAD: Normocephalic, atraumatic. RESPIRATORY: Airway patent, respirations nonlabored. CARDIOVASCULAR: Regular rate and rhythm. DP/PT pulses intact, easily palpable. MUSCULOSKELETAL: Moves all extremities. No gross deformities. Moderate swelling to L ankle, worse laterally, extending over anterior/dorsal foot to toes. TTP diffusely to lateral malleoli, extending over anterior lateral foot. No significant tenderness over 5th MT. TTP over 1st toe MTP joint/phalanx. Sensation intact throughout foot, ankle, toes. Capillary refill intact. SKIN: Warm, dry, normal color. NEURO: A&O X3. Speech clear. PSYCHIATRIC: Appropriate mood and affect. Normal interaction. Course Vital Signs Vital signs: Vital Signs Temperature 98 F 07/23/23 18:23 Pulse Rate 100 07/23/23 18:23 Respiratory Rate 18 07/23/23 18:23 Blood Pressure 100/68 07/23/23 18:23 Pulse Oximetry 97 07/23/23 18:23 Oxygen Delivery Room Air 07/23/23 18:23 Temperature 98 F 07/23/23 18:23 Pulse Rate 100 07/23/23 18:23 Respiratory Rate 18 07/23/23 18:23 Blood Pressure 100/68 07/23/23 18:23 Pulse Oximetry 97 07/23/23 18:23 Oxygen Delivery Room Air 07/23/23 18:23 MDM - Extremity Injury (Lower) MDM Narrative Medical decision making narrative: Patient?s injury is consistent with musculoskeletal etiology. No signs of neurologic or vascular compromise on physical examination. Compartments are soft without signs of compartment syndrome. XR of L ankle negative for acute fx. XR L foot showing fx of 1st proximal phalanx. Pain is consistent with ankle sprain, toe fx. Patient is felt to be stable for dischar
[2023-07-23 18:23] VITALS: BP 100/68; PULSE 100; RESP 18; TEMP 36.6; O2SAT 97
[2023-07-23] MEDS: HYDROcodone/acetaminophen (*CRX) 5-325 MG TABLET 1 TAB PO (18:26)
[2023-07-23] MEDS: KETOROLAC (*BKC) 60 MG/2 ML VIAL IM (18:26)
[2023-07-23 19:21] VITALS: BP 139/95; PULSE 83; RESP 17; TEMP 36.8; O2SAT 98
== END 2023-07-23 19:23 | disposition home or self-care (01) ==
PROVIDERS: Emergency Provider Physician Assistant
DX: S93.402A Sprain of unspecified ligament of left ankle, initial encounter (principal); S92.412A Displaced fracture of proximal phalanx of left great toe, initial encounter for closed fracture; E66.3 Overweight; Z68.28 Body mass index [BMI] 28.0-28.9, adult; F17.210 Nicotine dependence, cigarettes, uncomplicated; W18.49XA Other slipping, tripping and stumbling without falling, initial encounter; X50.9XXA Other and unspecified overexertion or strenuous movements or postures, initial encounter
CPT/HCPCS: 73610; 73630; 96372; 99284; A9270; J1885

== ENCOUNTER 2023-11-14 11:28 | Emergency (ER) | payer BC, SELFPAY ==
--- NOTE | 2023-11-14 11:36 | ED.EXTPRO ---
HPI - Extremity Problem General Chief complaint: Extremity Problem,Nontraumatic Stated complaint: gout Time Seen by Provider: 11/14/23 11:36 Source: patient Mode of arrival: ambulatory Limitations: no limitations History of Present Illness HPI Narrative: 58-year-old male presents with complaint of pain to right foot, right knee, bilateral elbows, wrists and hands. Patient reports that pain is from gout. States that he has seen several specialists in bed told by several doctors that he has gouty arthritis. Was seen last week and ear and given prednisone. States he was given the wrong dose and dose was not high enough. [facility] when he has gout And when he is seen in the ER and they are giving him only 3 tablets. Ambulatory with steady gait. Denies injury. currently does not have a primary care physician. All systems reviewed and negative except as noted above. Related Data Home Medications Medication Instructions Recorded Confirmed cephalexin 500 mg capsule 500 mg PO TID 11/14/23 11/14/23 prednisone 10 mg tablet See Rx Instructions .Route .COMPLEX 11/14/23 11/14/23 Allergies Allergy/AdvReac Type Severity Reaction Status Date / Time Penicillins Allergy Unknown Unknown Verified 11/14/23 11:29 Review of Systems Review of Systems: CONSTITUTIONAL: Denies fever, chills, or sweats. EYES: Denies visual changes, redness, or discharge. ENT: Denies rhinorrhea, congestion, sore throat, or otalgia. CARDIOVASCULAR: Denies chest pain, palpitations, or edema. RESPIRATORY: Denies cough or dyspnea. GASTROINTESTINAL: Denies abdominal pain, nausea, vomiting, or diarrhea. GENITOURINARY: Denies dysuria or hematuria. SKIN: Denies rash or itching. MUSCULOSKELETAL: Denies back pain . Reports joint pain NEUROLOGIC: Denies headache, numbness, or weakness. PSYCHIATRIC: Denies anxiety or depression. All other systems reviewed are negative, except as documented in HPI. [facility] Past Medical History Medical History (Updated 11/14/23 @ 11:50 by Madeline Parker NP) Ankle sprain Anxiety Arthritis Cervical spondylosis Dizziness Overweight Toe fracture Vision loss Surgical History Surgical History Encounter for orthopedic follow-up care Finger fracture, left Family History Family History Other Heart disease Social History Social History Smoking packs per day: 10 Smoking cigarettes per day: 200.0 Smoking status: Current every day smoker Tobacco type: cigarettes Smokeless tobacco user: other Alcohol intake: current Drinks per week: 40 Alcohol use details: occasionally Substance use: former Living arrangements: other Occupation/Education: unemployed Gender identity (if verbalized by the patient): Male Spiritual care concerns: No Comments At time of signature, agree with nursing past medical, surgical, social and family history. There is no relevant family history pertinent to the presenting complaint. Exam Narrative: GENERAL: This is a well-nourished, well-developed patient, in no apparent distress. HEAD: normocephalic, atraumatic. EYES: PERRL. Sclera clear/white. Vision is grossly intact. EARS: External ears normal NOSE: External nose normal NECK: Neck supple, non-tender without lymphadenopathy, masses or thyromegaly. CARDIOVASCULAR: Regular rate and rhythm without murmurs, gallops, or rubs. RESPIRATORY: Clear to auscultation. Breath sounds equal bilaterally. No wheezes, rales, or rhonchi. SKIN: warm, Dry, intact with no suspicious lesions or rash, good texture and turgor. NEURO: awake, alert, and oriented to person, place and time. There were no obvious focal neurologic abnormalities. EXTREMITIES: swelling and tenderness to bilateral elbows, obvio
[2023-11-14 11:37] VITALS: BP 125/86; PULSE 78; RESP 16; TEMP 36.3; O2SAT 98
== END 2023-11-14 11:56 | disposition home or self-care (01) ==
PROVIDERS: Emergency Provider Nurse Practitioner Family
DX: M25.522 Pain in left elbow (principal); M25.521 Pain in right elbow; M25.532 Pain in left wrist; M25.531 Pain in right wrist; M25.542 Pain in joints of left hand; M25.541 Pain in joints of right hand; F17.210 Nicotine dependence, cigarettes, uncomplicated; M19.90 Unspecified osteoarthritis, unspecified site; M47.812 Spondylosis without myelopathy or radiculopathy, cervical region
CPT/HCPCS: 99213; G0463